=== PATIENT | female | born 1990 | race Caucasian/White ===

== ENCOUNTER 2019-07-12 19:26 | Emergency (ER) | payer MEDICAID, SELFPAY ==
[2019-07-12 19:43] VITALS: BP 112/68; PULSE 78; RESP 14; TEMP 36.8; O2SAT 98; BMI 21.1
--- NOTE | 2019-07-12 19:56 | ED.URI ---
HPI - URI/Sore Throat General Chief Complaint: Upper Respiratory Symptoms Stated Complaint: Swollen Neck Glands Time Seen by Provider: 07/12/19 19:39 Source: patient Mode of arrival: Ambulatory Limitations: no limitations History of Present Illness HPI Narrative: Otherwise healthy 28-year-old female here for evaluation of bilateral swollen neck glands. Patient states that it started earlier this afternoon. Denies any other associated symptoms to include sore throat or headache her sinus congestion or dental pain. She states she took a Benadryl which seemed to improve her symptoms but not completely. No problems breathing. No problems swallowing. No rashes. With a sick contacts. Related Data Home Medications Medication Instructions Recorded Confirmed VIT#96/FERROUS FUM/FA 1 tab PO Q DAY #0 04/25/11 03/26/19 ( Tablet) Previous Rx's Medication Instructions Recorded prednisone 40 mg PO DAILY 2 Days #4 tab 07/12/19 Allergies Allergy/AdvReac Type Severity Reaction Status Date / Time No Known Allergies Allergy Uncoded 10/09/17 11:54 Review of Systems Constitutional Constitutional: Denies fever(s) and Denies headache(s) Eyes Eyes: Denies itchy eyes ENT Ears, Nose, Mouth, and Throat: Denies headache(s) Comments: Glands in the neck swelling Cardiovascular Cardiovascular: Denies dyspnea Respiratory Respiratory: Denies cough and Denies dyspnea Integumentary/Breasts Skin/Breast: Denies rash Neurologic Neurologic: Denies headache(s) Allergic/Immunologic Allergic/Immunologic: Denies urticaria and Denies itchy eyes Patient History Medical History No known health problems (03/28/11) Social History Smoking Status: Never smoker Smoking Status: Never smoker alcohol intake frequency: 0-2 drinks per day Substance Use Type: marijuana Exam Initial Vital Signs Initial Vital Signs: Vital Signs Temperature 98.3 F 07/12/19 19:43 Pulse Rate 78 07/12/19 19:43 Respiratory Rate 14 07/12/19 19:43 Blood Pressure 112/68 07/12/19 19:43 Pulse Oximetry 98 07/12/19 19:43 Const General: cooperative and comfortable HENMT Head: normal to inspection and normocephalic Neck Lymphatic: lymphadenopathy (Bilateral anterior cervical left greater than right) Resp Effort & Inspection: normal respiratory effort Auscultation: clear to auscultation bilaterally Cardio Rate: regular rate Skin Lesions: no lesions Rashes: no rashes Neuro General: alert and awake Extrem General: normal to inspection and capillary refill normal Psych Appearance: grossly normal and well kempt Course Orders Ordered: ED Orders 07/12/19 20:09 Throat Culture Stat Discontinued Medications Prednisone (Deltasone) 40 mg PO NOW ONE Stop: 07/12/19 20:41 Last Admin: 07/12/19 20:45 Dose: 40 mg Documented by: WINNIE Vital Signs Vital signs: Vital Signs - 8 hr 07/12/19 19:43 Temperature 98.3 F Pulse Rate 78 Respiratory Rate 14 Blood Pressure 112/68 Pulse Oximetry 98 MDM - URI/Sore Throat Lab Data Labs: Point of Care Testing Rapid Strep A Negative MDM Narrative Medical decision making narrative: Patient is nontoxic appearing. No respiratory distress. No signs of anaphylaxis. Does have left-sided anterior cervical lymphadenopathy greater than the right. Strep is negative. Throat culture pending. Will send home with a short course of steroids. Will hold on further workup. Patient was given return precautions and follow-up instructions. She expressed understanding and agreement plan. Discharge Plan Departure Patient Disposition: Home Clinical Impression: Lymphadenopathy of left cervical region Discharge Date/Time: 07/12/19 20:47 Instructions: DI for Lymphadenopathy Activity Restrictions/Additional Instructions: Take the medications as directed. A throat culture was pending at the time of discharge and we will call you if we need to start any antibiotics. Return to the emergency department for any new or worsening symptoms. Contact your primary provider for a follow-up Prescriptions: New prednisone 20 mg tablet 40 mg PO DAILY 2 Days Qty: 4 RF: 0 No Action VIT#96/FERROUS FUM/FA ( Tablet) 1 tab PO Q DAY Qty: 0 RF: 0
[2019-07-12] MEDS: predniSONE 20 MG TABLET 40 MG PO (20:45)
== END 2019-07-12 20:47 | disposition home or self-care (01) ==
PROVIDERS: Emergency Provider Emergency Medicine
DX: R59.0 Localized enlarged lymph nodes (principal)
CPT/HCPCS: 87070; 87880; 99283